=== PATIENT | female | born 1950 | race Caucasian/White ===

== ENCOUNTER 2017-08-17 09:39 | Day surgery (SDC) | payer MEDICARE, OTHER ==
[~2017-08-17 09:39] MED LIST: CEFAZOLIN 1 GM INJ
[2017-08-17] MEDS ORDERED: POVIDONE IODINE 10% 28.4 GM OINT (10:56)
[2017-08-17] MEDS ORDERED: BUPIVACAINE 0.5% (SDV) 30 ML INJ (10:56)
[2017-08-17] MEDS ORDERED: DEXAMETHASONE 4 MG/ML 1 ML INJ (10:56)
[2017-08-17] MEDS ORDERED: PROPOFOL 20 ML (11:10)
[2017-08-17] MEDS ORDERED: MIDAZOLAM 1 MG/ML 2 ML INJ (11:10)
[2017-08-17] MEDS ORDERED: KETOROLAC 30 MG INJ (11:11)
[2017-08-17] MEDS ORDERED: ONDANSETRON 4 MG INJ (11:11)
[2017-08-17] MEDS ORDERED: METOCLOPRAMIDE 10 MG INJ (11:11)
[2017-08-17] MEDS: BUPIVACAINE 0.5% 30 ML VIAL INJ (11:15)
[2017-08-17] MEDS ORDERED: HYDROmorphONE (0.2 MG/ML) 10ML SYG IV ×2 (12:00)
[2017-08-17] MEDS ORDERED: OXYCODONE/ACETAMINOPHEN (5/325) TAB PO ×2 (12:00)
[2017-08-17] MEDS ORDERED: ONDANSETRON 4 MG INJ IV (12:00)
[2017-08-17] MEDS: HYDROmorphONE (0.2 MG/ML) 10ML SYG IV (12:33)
== END 2017-08-17 14:25 | disposition home or self-care (01) ==
LOC: SDS 09:39
DX: L72.8 Other follicular cysts of the skin and subcutaneous tissue (principal)
CPT/HCPCS: 11423; 88304

== ENCOUNTER → 2018-04-19 | Day surgery (SDC) | payer MEDICARE, OTHER ==
[~2018-04-19] MED LIST changes: +ALBUTEROL 0.083% (NEB) 2.5 MG/3 ML AMP HHN; +DEXAMETHASONE 4 MG/ML 1 ML INJ; +DIPHENHYDRAMINE 50 MG INJ IV; +EPHEDrine SULFATE 50 MG/5 ML SYG; +EPHEDrine SULFATE 50 MG/5 ML SYG IV; +FAMOTIDINE 20 MG INJ; +FENTAnyl 50 MCG/ML VIAL; +FENTAnyl 50 MCG/ML VIAL IV; +HYDROmorphONE 1 MG/5 ML IV SYRINGE IV; +KETOROLAC 30 MG INJ; +LABETALOL HCL 20MG INJ IV; +LIDOCAINE 2% (MDV) 20 ML INJ; +LIDOCAINE 2% (SDV) 5 ML INJ; +MEPERIDINE 25 MG INJ IV; +MIDAZOLAM 1 MG/ML 2 ML INJ; +ONDANSETRON 4 MG INJ; +ONDANSETRON 4 MG INJ IV; +OXYCODONE/ACETAMINOPHEN (5/325) TAB PO; +PROPOFOL 0 ML; +PROPOFOL 20 ML; +ROPIVACAINE 0.5 % 30 ML VIAL; +morphine (1 MG/ML) 10ML SYRINGE IV
[2018-04-19] MEDS: POVIDONE IODINE 10% 28.4 GM OINT (07:52)
[2018-04-19] MEDS: BUPIVACAINE 0.5% (SDV) 30 ML INJ (07:53)
[2018-04-19] MEDS: DEXAMETHASONE 4 MG/ML 1 ML INJ (07:53)
== END | disposition home or self-care (01) ==
LOC: SDS 07:16
DX: M20.42 Other hammer toe(s) (acquired), left foot (principal)
CPT/HCPCS: 28285; 88304; 88311